=== PATIENT | female | born 1990 | race Caucasian/White ===

== ENCOUNTER 2017-04-20 09:13 | Emergency (ER) | payer OTHER ==
[~2017-04-20] VITALS: Ht 152.4 cm; Wt 61.1 kg
[~2017-04-20 09:13] MED LIST: CHROMAGEN,1 CAPSULE PO; CYMBALTA20 MG PO; DULOXETINE HCL20 MG PO; KEFLEX500 MG PO; LORAZEPAM0.5 MG PO; LOVENOX40 MG/0.4 SC; MOTRIN600 MG PO; NAPROSYN500 MG PO; NIFEDIPINE ER30 MG PO; OXYCODONE-APAP1 EACH PO; PRENATAL TABLE1 EAC3 PO; PRENATAL VITAM1 EAC6 PO; ULTRAM50 MG PO; ZOFRAN4 MG PO
[2017-04-20] MEDS ORDERED: LIDODERM 5% P1 PATCH TD (11:07)
[2017-04-20] MEDS ORDERED: MEDROL DOSEPAK4 MG PO (11:07)
[2017-04-20] MEDS ORDERED: NORCO 5/3251 TABLET PO (11:07)
[2017-04-20 11:25] VITALS: BP 126/83
== END 2017-04-20 11:25 | disposition home or self-care (01) ==
LOC: EME 09:13
DX: M25.512 Pain in left shoulder (principal); S46.812A Strain of other muscles, fascia and tendons at shoulder and upper arm level, left arm, initial encounter; X58.XXXA Exposure to other specified factors, initial encounter; M54.2 Cervicalgia; G89.29 Other chronic pain; Z72.0 Tobacco use
CPT/HCPCS: 99281; 99283

== ENCOUNTER 2017-06-04 21:05 | Emergency (ER) | payer OTHER ==
[~2017-06-04] VITALS: Ht 152.4 cm; Wt 61.4 kg
[~2017-06-04 21:05] MED LIST changes: +LIDODERM 5% P1 PATCH TD; +MEDROL DOSEPAK4 MG PO; +NORCO 5/3251 TABLET PO
[2017-06-04 21:33] VITALS: BP 136/91
[2017-06-04 22:07] LABS: HEMATOCRIT 42.1 % (36.0-46.0); MCH 27.7 PG (29.0-34.0); MCHC 32.3 G/DL (30.0-36.0); MCV 85.7 FL (83-99); MEAN PLAT.VOLUME 8.5 uM^3 (9.5-12.4); PLATELET COUNT 299 K/uL (156-360); RBC DIS.WIDTH-CV 12.7 % (11.8-14.6); RBC DIS.WIDTH-SD 39.9 % (39-53); RED BLOOD COUNT 4.91 M/uL (3.80-5.20)
[2017-06-04 22:17] LABS: CHLORIDE 104 mEq/L (99-109); POTASSIUM 3.9 mEq/L (3.7-5.4); SODIUM 138 mEq/L (136-147)
[2017-06-04 22:20] LABS: GLUCOSE 98 mg/dL (70-99)
[2017-06-04 22:21] LABS: ANION GAP 10 MEQ/L (2-14)
[2017-06-04 22:21] LABS: ADD MIUA? YES; BILIRUBIN NEGATIVE; BLOOD MODERATE; COLOR STRAW ((YELLOW)); GLUCOSE (STRIP) NEGATIVE; KETONES NEGATIVE; LEUKOCYTES NEGATIVE; NITRITE NEGATIVE; PROTEIN (STRIP) NEGATIVE; SPECIFIC GRAVITY 1.004 (1.000-1.030); UROBILINOGEN 0.2 MG/DL (0.2-1.0)
[2017-06-04 22:22] LABS: TOTAL BILIRUBIN 0.2 mg/dL (0.0-1.0)
[2017-06-04 22:23] LABS: ALKALINE PHOSPHATASE 115 IU/L (3-129); GFR ESTIMATE (CALCULATED) > 59 mL/min/
[2017-06-04 22:24] LABS: UREA NITROGEN (BUN) 17 mg/dL (9-23)
[2017-06-04 22:34] LABS: BACTERIA RARE /HPF; EPITHELIAL CELLS RARE /HPF; MUCUS NONE SEEN /LPF; RED BLOOD CELLS 0-5 /HPF (0-5); UCUL ADDED? NO; WHITE BLOOD CELLS 0-5 /HPF (0-5)
[2017-06-04 22:38] LABS: QUANTITATIVE HCG < 4.0 MIU/ML
[2017-06-05] MEDS ORDERED: ULTRAM50 MG PO (16:57)
[2017-06-05] MEDS ORDERED: KEFLEX500 MG PO (16:57)
== END 2017-06-05 01:11 | disposition left against medical advice (07) ==
LOC: EME 21:05
DX: R10.9 Unspecified abdominal pain (principal); R31.9 Hematuria, unspecified; D68.51 Activated protein C resistance; Z87.442 Personal history of urinary calculi; Z72.0 Tobacco use
CPT/HCPCS: 80053; 81003; 84702; 85027; 99281; 99283

== ENCOUNTER 2017-06-05 10:55 | Emergency (ER) | payer OTHER ==
[~2017-06-05] VITALS: Ht 152.4 cm; Wt 61.9 kg
[2017-06-05 13:31] LABS: HEMATOCRIT 40.5 % (36.0-46.0); MCH 27.7 PG (29.0-34.0); MCHC 32.1 G/DL (30.0-36.0); MCV 86.2 FL (83-99); MEAN PLAT.VOLUME 8.4 uM^3 (9.5-12.4); PLATELET COUNT 289 K/uL (156-360); RBC DIS.WIDTH-CV 12.7 % (11.8-14.6); RBC DIS.WIDTH-SD 39.8 % (39-53); WHITE BLOOD COUNT 7.4 K/uL (4.1-10.2)
[2017-06-05 13:48] LABS: CHLORIDE 104 mEq/L (99-109); POTASSIUM 4.2 mEq/L (3.7-5.4); SODIUM 138 mEq/L (136-147)
[2017-06-05 13:50] LABS: GLUCOSE 97 mg/dL (70-99)
[2017-06-05 13:52] LABS: ANION GAP 9 MEQ/L (2-14)
[2017-06-05 13:54] LABS: ALKALINE PHOSPHATASE 110 IU/L (3-129); GFR ESTIMATE (CALCULATED) > 59 mL/min/; TOTAL BILIRUBIN 0.3 mg/dL (0.0-1.0)
[2017-06-05 13:55] LABS: UREA NITROGEN (BUN) 15 mg/dL (9-23)
[2017-06-05 14:05] LABS: QUANTITATIVE HCG < 4.0 MIU/ML
[2017-06-05 14:42] LABS: ADD MIUA? YES; BILIRUBIN NEGATIVE; BLOOD MODERATE; COLOR YELLOW ((YELLOW)); GLUCOSE (STRIP) NEGATIVE; KETONES NEGATIVE; LEUKOCYTES TRACE; NITRITE NEGATIVE; PROTEIN (STRIP) NEGATIVE; SPECIFIC GRAVITY 1.017 (1.000-1.030); UROBILINOGEN 0.2 MG/DL (0.2-1.0)
[2017-06-05 15:53] LABS: BACTERIA RARE /HPF; EPITHELIAL CELLS 1+ /HPF; MUCUS TRACE /LPF; RED BLOOD CELLS 0-5 /HPF (0-5); UCUL ADDED? NO
[2017-06-05] MEDS ORDERED: ULTRAM50 MG PO (16:57)
[2017-06-05] MEDS ORDERED: KEFLEX500 MG PO (16:57)
[2017-06-05 17:30] VITALS: BP 129/86
== END 2017-06-05 17:31 | disposition home or self-care (01) ==
LOC: EME 10:55
PROVIDERS: Nurse Practitioner Family
DX: N39.0 Urinary tract infection, site not specified (principal); Z87.442 Personal history of urinary calculi; Z72.0 Tobacco use
CPT/HCPCS: 74176; 80053; 81003; 84702; 85027; 87086; 99281; 99284